=== PATIENT | male | born 2000 | race Hispanic/Latino ===

== ENCOUNTER 2024-09-19 12:22 | Emergency (ER) | payer BC ==
[2024-09-19 12:44] LABS: #Basophils 0.09 10x3/uL (0.0-0.2); %Eosinophils 0.4 % (0.0-10.0); %Lymphocytes 20.1 % (21.0-51.0); %Monocytes 5.8 % (0.0-10.0); %Neutrophils 72.3 % (42.0-75.0); Hematocrit 45.7 % (42.0-52.0); Hemoglobin 16.1 g/dL (14.0-18.0); Mean Corpuscular HGB CONC 35.2 g/dL (32.0-36.0); Mean Corpuscular Hemoglobin 29.8 pg (27.0-31.0); Mean Corpuscular Volume 84.5 fL (78.0-98.0); Mean Platelet Volume 9.7 fL (7.4-10.4); Platelet Count 309 10x3/uL (130-400); RBC Distribution Width 13.6 % (11.5-14.5); Red Blood Cell (RBC) Count 5.41 mill/uL (4.70-6.10)
[2024-09-19] MEDS ORDERED: Aspirin 81 mg Enteric Coated Tablet ONE (12:55)
[2024-09-19] MEDS ORDERED: Lorazepam 2 MG/ML VIAL ONE (12:56)
[2024-09-19 13:15] LABS: ALT (SGPT) 100 U/L (Less than 45); AST (SGOT) 80 U/L (11-34); Albumin 4.6 g/dL (3.1-4.5); Alkaline Phosphatase 97 U/L (40-110); Anion Gap 18 mmol/L (10-20); BUN (Urea Nitrogen) 5 mg/dL (8.9-20.6); Bilirubin, Total 0.6 mg/dL (0.3-1.2); Calc. Creatinine Clearance 0 mL/min (70-130); Carbon Dioxide 23 mmol/L (22-29); Chloride 101 mmol/L (98-107); Estimated GFR 120; Glucose 152 mg/dL (70-105); Potassium 3.1 mmol/L (3.5-5.1); Protein, Total 8.6 g/dL (6.0-8.3); Sodium 139 mmol/L (136-145)
[2024-09-19 13:20] LABS: Troponin I Less than 0.010 ng/mL (< 0.028)
[2024-09-19 16:04] LABS: Troponin I Less than 0.010 ng/mL (< 0.028)
== END 2024-09-19 16:49 | disposition home or self-care (01) ==
LOC: ERS 12:22
DX: R07.9 Chest pain, unspecified (principal); F14.10 Cocaine abuse, uncomplicated
CPT/HCPCS: 36415; 71045; 80053; 84484; 85025; 93005; 96374; J2060